=== PATIENT | male | born 1955 | race Caucasian/White ===

== ENCOUNTER 2019-02-22 06:22 | Day surgery (SDC) | payer BC ==
[2019-02-22] VITALS (7 sets, daily range): BP systolic 115–152; BP diastolic 63–93
[~2019-02-22] VITALS: Ht 175.3 cm; Wt 79.7 kg
[2019-02-22] MEDS ORDERED: normal saline 1000ml 1,000 ML IV PRN (06:45)
[2019-02-22] MEDS ORDERED: ESCI20TA38 PO (06:48)
[2019-02-22] MEDS ORDERED: DOCU-28 PO (06:50)
[2019-02-22] MEDS ORDERED: GABA-532 PO (06:51)
[2019-02-22] MEDS ORDERED: IBUP1TAB PO (06:57)
[2019-02-22] MEDS ORDERED: HYDR-3965 PO (06:58)
[2019-02-22 07:26] LABS: BASOPHILS # (AUTO) 0.1 X10'3 (0-0.2); BASOPHILS % (AUTO) 0.9 % (0-1); EOSINOPHILS # (AUTO) 0.2 X10'3 (0-0.9); EOSINOPHILS % (AUTO) 3.3 % (0-6); HEMATOCRIT 44.6 % (42.0-52.0); HEMOGLOBIN 15.1 g/dl (14.0-17.9); LYMPHOCYTES % (AUTO) 14.7 % (21-51); MEAN CORPUSCULAR HEMOGLOBIN 27.3 PG (27.0-31.0); MEAN CORPUSCULAR VOLUME 80.3 FL (78-98); MONOCYTES # (AUTO) 0.6 X10'3 (0-0.9); MONOCYTES % (AUTO) 8.7 % (2-12); NEUTROPHILS # (AUTO) 4.7 X10'3 (1.8-7.7); NEUTROPHILS % (AUTO) 72.4 % (42-75); PLATELET COUNT 188 X10'3 (140-440); RED BLOOD COUNT 5.56 X10'6 (4.70-6.10); RED CELL DISTRIBUTION WIDTH 14.2 % (11.5-14.5); WHITE BLOOD COUNT 6.5 X10'3 (4.5-11.0)
[2019-02-22 07:38] LABS: ALBUMIN 4.2 G/DL (3.4-5.0); ANION GAP 8 (8-16); BLOOD UREA NITROGEN 15 MG/DL (7-18); BUN/CREATININE RATIO 15.8 (5.4-32.0); CALCIUM 8.5 MG/DL (8.5-10.1); CHLORIDE 103 MMOL/L (99-107); CREATININE 0.95 MG/DL (0.60-1.10); GLUCOSE 106 MG/DL (70-104); POTASSIUM 3.7 MMOL/L (3.5-5.1); SODIUM 139 MMOL/L (135-145); TOTAL CARBON DIOXIDE 28.2 MMOL/L (24-32); eGFR 80 ML/MIN
[2019-02-22] MEDS ORDERED: heparin sodium, porcine/PF 100unit/ml 5ML syringe ICATH ONE (08:15)
[2019-02-22] MEDS ORDERED: fentaNYL/PF 50MCG/1 ML 2ML syringe IV PRN (08:15)
[2019-02-22] MEDS ORDERED: midazolam 2 mg/2 ml injection IV PRN (08:15)
[2019-02-22] MEDS ORDERED: LIDOcaine 1%/PF 5ML 10 MG/ML VIAL SQ ONE (08:15)
[2019-02-22] MEDS ORDERED: heparin sodium, porcine/PF 100unit/ml 5ML syringe ONE (08:17)
[2019-02-22] MEDS ORDERED: midazolam 2 mg/2 ml injection ONE ×2 (08:17→09:03)
[2019-02-22] MEDS ORDERED: fentaNYL/PF 50MCG/1 ML 2ML syringe ONE ×2 (08:17→09:03)
[2019-02-22] MEDS ORDERED: LIDOcaine 1%/PF 5ML 10 MG/ML VIAL ONE (08:17)
[2019-02-22] MEDS ORDERED: acetaminophen 325mg tablet PO PRN (11:05)
== END 2019-02-22 11:00 | disposition home or self-care (01) ==
LOC: SSTAY O 06:22
PROVIDERS: ATTEND Radiology Vascular & Interventional Radiology
DX: C25.9 Malignant neoplasm of pancreas, unspecified (principal); Z90.49 Acquired absence of other specified parts of digestive tract; Z98.890 Other specified postprocedural states; Z98.52 Vasectomy status
CPT/HCPCS: 36415; 36561; 76937; 77001; 80048; 85025; 85610; 99152; 99153; C1788; C1894; J1642; J2001; J2250; J3010; J7030; A6219

== ENCOUNTER 2020-04-16 10:31 | Inpatient (IN) | payer BC ==
[~2020-04-16] VITALS: Ht 175.3 cm; Wt 76.2 kg
[~2020-04-16 10:31] MED LIST: DOCU-28 PO; ESCI20TA45 PO; GABA-532 PO; HYDR-3965 PO; IBUP1TAB PO
[2020-04-16 11:19] LABS: BASOPHILS % (AUTO) 0.6 % (0-1); EOSINOPHILS # (AUTO) 0.1 X10'3 (0-0.9); HEMOGLOBIN 14.4 g/dl (14.0-17.9); LYMPHOCYTES # (AUTO) 0.5 X10'3 (1.1-4.8); LYMPHOCYTES % (AUTO) 8.3 % (21-51); MEAN CORPUSCULAR HEMOGLOBIN 26.8 PG (27.0-31.0); MEAN CORPUSCULAR HGB CONC 33.5 g/dL (33.0-36.5); MEAN CORPUSCULAR VOLUME 79.9 FL (78-98); MEAN PLATELET VOLUME 7.6 FL (7.4-10.4); MONOCYTES # (AUTO) 0.8 X10'3 (0-0.9); NEUTROPHILS # (AUTO) 4.8 X10'3 (1.8-7.7); NEUTROPHILS % (AUTO) 76.1 % (42-75); PLATELET COUNT 208 X10'3 (140-440); RED BLOOD COUNT 5.38 X10'6 (4.70-6.10); RED CELL DISTRIBUTION WIDTH 14.3 % (11.5-14.5); WHITE BLOOD COUNT 6.3 X10'3 (4.5-11.0)
[2020-04-16 11:40] LABS: ALANINE AMINOTRANSFERASE 42 U/L (12-78); ALBUMIN 3.9 G/DL (3.4-5.0); ALBUMIN/GLOBULIN RATIO 0.9 (1.1-1.5); ALKALINE PHOSPHATASE 135 IU/L (46-116); ANION GAP 14 (8-16); ASPARTATE AMINO TRANSFERASE 28 U/L (10-37); BILIRUBIN,TOTAL 0.7 MG/DL (0.1-1.0); BLOOD UREA NITROGEN 23 MG/DL (7-18); BUN/CREATININE RATIO 23.2 (5.4-32.0); CALCIUM 8.9 MG/DL (8.5-10.1); CHLORIDE 103 MMOL/L (99-107); CREATININE 0.99 MG/DL (0.60-1.10); GLUCOSE 120 MG/DL (70-104); POTASSIUM 4.1 MMOL/L (3.5-5.1); SODIUM 138 MMOL/L (135-145); TOTAL CARBON DIOXIDE 20.7 MMOL/L (24-32); TOTAL PROTEIN 8.1 G/DL (6.4-8.2); eGFR 76 ML/MIN
[2020-04-16] MEDS ORDERED: ondansetron/PF 4mg/2ml inj IV ONE (11:50)
[2020-04-16] MEDS ORDERED: morphine 4 MG/ML inj SYRINge IV ONE (11:50)
[2020-04-16] MEDS ORDERED: iohexol 300mg/ml 100ml inj. ONE (12:12)
[2020-04-16] MEDS ORDERED: cefoxitin sod inj 2,000 MG in normal saline 100ml IV soln 100 ML IV ONE (12:40)
[2020-04-16] MEDS ORDERED: magnesium Cl slow-release 64mg tablet PO PRN (13:15)
[2020-04-16] MEDS ORDERED: bisacodyl 10mg suppository rectal RC PRN (13:15)
[2020-04-16] MEDS ORDERED: magnesium 2GM in 50ml NS 50 ML IV PRN (13:15)
[2020-04-16] MEDS ORDERED: acetaminophen 650mg rectal suppository RC PRN (13:15)
[2020-04-16] MEDS ORDERED: magnesium 4gm in 100ml NS 100 ML IV PRN (13:15)
[2020-04-16] MEDS ORDERED: HYDROmorphone inj. 0.5 MG/0.5 ML DISP.SYRIN IV PRN (13:15)
[2020-04-16] MEDS ORDERED: potassium Cl 20 mEq SR tablet PO PRN ×2 (13:15)
[2020-04-16] MEDS ORDERED: potassium CL 10mEq/100ml bag 100 ML IV PRN ×2 (13:15)
[2020-04-16] MEDS ORDERED: ondansetron/PF 4mg/2ml inj IV PRN (13:15)
[2020-04-16] MEDS: normal saline 1000ml 1,000 ML IV SCH ×2 (13:43→15:54)
--- NOTE | 2020-04-16 14:25 | NUR ---
MD Mares at bedside with pt
[2020-04-16 15:16] LABS: CLARITY,URINE CLEAR (Clear); COLOR,URINE YELLOW (Yellow); GLUCOSE, URINE NEGATIVE (Neg); KETONES,URINE TRACE mg/dl (Neg); LEUKOCYTE ESTERASE ,URINE NEGATIVE (Neg); NITRITES, URINE NEGATIVE (Neg); OCCULT BLOOD,URINE NEGATIVE (Neg); PH,URINE 5.5 (4.8-8.0); PROTEIN,URINE NEGATIVE (Neg); UROBILINOGEN,URINE 0.2 E.U/dL (0.2-1.0)
[2020-04-16 15:30] LABS: UA COLLECTION TYPE CLN CATCH MIDSTREAM
--- NOTE | 2020-04-16 15:40 | NUR ---
Received report from SONG Starr. Patient arrived to floor. VSS.
[2020-04-16 15:45] VITALS: BP 117/47
[2020-04-16] MEDS: piperacillin/tazo 4.5gm/100ml 100 ML IV SCH (16:16)
[2020-04-16] MEDS: HYDROmorphone 1 mg/ml syringe IV PRN (17:58)
--- NOTE | 2020-04-16 18:31 | NUR ---
Problems reprioritized. Patient report given, questions answered & plan of care reviewed with SONG COTA.
[2020-04-16 20:00] VITALS: BP 118/61
[2020-04-16] MEDS: K and/or MAG REPLACEMENT MC SCH (20:00)
--- NOTE | 2020-04-16 20:00 | NUR ---
Dr. Torres in to see patient. MD wants a repeat CT with PO contrast over night before deciding on surgery. Hold Tomorrow morning's does of Lovenox per .
[2020-04-16] MEDS: enoxaparin 40mg/0.4ml syringe SQ SCH (20:26)
[2020-04-16] MEDS: diatr meglu/diatrizoate 30ml oral sol.-(3 dose) bottle PO SCH (21:39)
[2020-04-17] VITALS (15 sets, daily range): BP systolic 96–150; BP diastolic 54–79
[2020-04-17] MEDS: piperacillin/tazo 4.5gm/100ml 100 ML IV SCH ×3 (00:23→16:02)
[2020-04-17] MEDS: HYDROmorphone 1 mg/ml syringe IV PRN (00:27)
[2020-04-17] MEDS: normal saline 1000ml 1,000 ML IV SCH ×3 (01:13→20:36)
[2020-04-17 05:09] LABS: BASOPHILS % (AUTO) 0.6 % (0-1); EOSINOPHILS # (AUTO) 0.1 X10'3 (0-0.9); EOSINOPHILS % (AUTO) 2.4 % (0-6); HEMATOCRIT 41.4 % (42.0-52.0); HEMOGLOBIN 13.7 g/dl (14.0-17.9); LYMPHOCYTES # (AUTO) 0.5 X10'3 (1.1-4.8); LYMPHOCYTES % (AUTO) 7.9 % (21-51); MEAN CORPUSCULAR HEMOGLOBIN 26.6 PG (27.0-31.0); MEAN CORPUSCULAR HGB CONC 33.1 g/dL (33.0-36.5); MEAN CORPUSCULAR VOLUME 80.4 FL (78-98); MEAN PLATELET VOLUME 7.8 FL (7.4-10.4); MONOCYTES # (AUTO) 0.7 X10'3 (0-0.9); MONOCYTES % (AUTO) 11.3 % (2-12); NEUTROPHILS # (AUTO) 4.6 X10'3 (1.8-7.7); NEUTROPHILS % (AUTO) 77.8 % (42-75); PLATELET COUNT 165 X10'3 (140-440); RED BLOOD COUNT 5.15 X10'6 (4.70-6.10); RED CELL DISTRIBUTION WIDTH 14.3 % (11.5-14.5)
[2020-04-17 05:41] LABS: ALANINE AMINOTRANSFERASE 34 U/L (12-78); ALBUMIN 3.3 G/DL (3.4-5.0); ALBUMIN/GLOBULIN RATIO 0.9 (1.1-1.5); ALKALINE PHOSPHATASE 115 IU/L (46-116); ANION GAP 8 (8-16); ASPARTATE AMINO TRANSFERASE 23 U/L (10-37); BILIRUBIN,TOTAL 1.1 MG/DL (0.1-1.0); BLOOD UREA NITROGEN 19 MG/DL (7-18); BUN/CREATININE RATIO 16.1 (5.4-32.0); CALCIUM 8.2 MG/DL (8.5-10.1); CHLORIDE 105 MMOL/L (99-107); CREATININE 1.18 MG/DL (0.60-1.10); GLUCOSE 96 MG/DL (70-104); MAGNESIUM 2.2 MG/DL (1.5-2.4); POTASSIUM 3.8 MMOL/L (3.5-5.1); SODIUM 139 MMOL/L (135-145); TOTAL CARBON DIOXIDE 26.4 MMOL/L (24-32); TOTAL PROTEIN 6.9 G/DL (6.4-8.2); eGFR 62 ML/MIN
--- NOTE | 2020-04-17 06:46 | NUR ---
Patient in room [facility] 347B. I have received report from SONG COTA and had the opportunity to ask questions and assume patient care.
[2020-04-17] MEDS: diatr meglu/diatrizoate 30ml oral sol.-(3 dose) bottle PO SCH ×2 (07:27→10:33)
[2020-04-17] MEDS: K and/or MAG REPLACEMENT MC SCH ×2 (07:34→20:00)
[2020-04-17] MEDS ORDERED: ondansetron/PF 4mg/2ml inj IV PRN (15:20)
[2020-04-17] MEDS ORDERED: meperidine/PF 25mg/ml syringe IV PRN ×2 (15:20)
[2020-04-17] MEDS ORDERED: proCHLORperazine 10 MG/2 ml inj IV PRN (15:20)
[2020-04-17] MEDS ORDERED: morphine 2 MG/ML inj. syringe IV PRN (15:20)
[2020-04-17] MEDS ORDERED: ringers solution, lacted 1,000 ML IV SCH (15:20)
[2020-04-17] MEDS ORDERED: rocuronium 10mg/ml inj IV ONE ×2 (16:18→17:43)
[2020-04-17] MEDS ORDERED: midazolam 2 mg/2 ml injection ONE (16:18)
[2020-04-17] MEDS ORDERED: fentaNYL /PF 50mcg/ml 5ml ampule ONE (16:18)
[2020-04-17] MEDS ORDERED: gentamicin 40 MG/1 ML inj ONE (16:30)
[2020-04-17] MEDS ORDERED: clindamycin phosphate 150mg/ml inj. ONE (16:31)
[2020-04-17] MEDS ORDERED: BUPIVAcaine/PF 2.5 mg/ml (0.25%) 30ml vial ONE ×2 (16:31→17:59)
[2020-04-17] MEDS ORDERED: sevoflurane 250ml liquid IH ONE (16:50)
[2020-04-17] MEDS ORDERED: dexamethasone sod phosphate 10mg/ml inj ONE (16:50)
[2020-04-17] MEDS ORDERED: LIDOcaine 1%/PF 5ML 10 MG/ML VIAL ONE (16:50)
[2020-04-17] MEDS ORDERED: neostigmine methylsulfate 1 MG/ML 10ml vial ONE (16:50)
[2020-04-17] MEDS ORDERED: ondansetron/PF 4mg/2ml inj ONE (17:29)
[2020-04-17] MEDS ORDERED: propofol inj 20 ML IV ONE (17:29)
[2020-04-17] MEDS ORDERED: BUPIVACAINE liposomal/PF 13.3 MG/ML vial IM ONE (18:00)
--- NOTE | 2020-04-17 18:09 | NUR ---
Patient in room [facility] 347. I have received report from viraj Vergara and had the opportunity to ask questions and assume patient care. Patient is currently in surgery,left unit at 1606.
--- NOTE | 2020-04-17 18:51 | NUR ---
Problems reprioritized. Patient report given, questions answered & plan of care reviewed with SONG MOODY.
[2020-04-17] MEDS ORDERED: glycopyrrolate 0.2mg/ml inj ONE (19:12)
--- NOTE | 2020-04-17 19:21 | NUR ---
Received from OR via , accompanied by Anesthesiologist DR MONTES and report given by Anesthesiolgist. AWAKE AND C/O SEVERE ABD INCISION PAIN. WILL MEDICATE. VITALS STABLE. DRESSING DI. JIMMY WITH SERO GEREMIAS IN BUIB. BARRIENTOS WITH CLEAR URINE.
[2020-04-17] MEDS ORDERED: acetaminophen 1,000mg/100ml IV 100 ML IV ONE (19:25)
[2020-04-17] MEDS: meperidine/PF 25mg/ml syringe IV PRN ×2 (19:27→19:30)
[2020-04-17] MEDS: morphine 4 MG/ML inj SYRINge IV PRN ×2 (19:41→19:50)
[2020-04-17] MEDS ORDERED: CADD PCA waste documentation MC SCH (19:45)
[2020-04-17] MEDS: HYDROmorphone/NS 1 mg/ml CADD 50 ML IV SCH ×3 (19:56→23:00)
--- NOTE | 2020-04-17 20:05 | NUR ---
Received report from corin Pina, RN. Awaiting patient ot arrive to unit.
--- NOTE | 2020-04-17 20:11 | NUR ---
Report called to receiving nurse. Transferred via BED Belongings . Special Issues communicated to receiving nurse. AWAKE AND ORIENTED. VITALS STABLE. DRESSING DI. STATES PAIN IMPROVING. TO SURGICAL RM 347B AT THIS TIME.
--- NOTE | 2020-04-17 20:31 | NUR ---
2014.Patient arrived to unit in bed RN transported. Patietn is ALOx4, patient is painful, encouraged him to press his CADD pump when it was time. Two big abdominal dressing covering the abdominal area, it is CDI, galarza is in place and draining urine, SCDS are on and working. I will continue to monitor.
[2020-04-18] VITALS: BP 116/72
[2020-04-18] MEDS: piperacillin/tazo 4.5gm/100ml 100 ML IV SCH ×3 (00:08→15:59)
[2020-04-18 00:44] VITALS: BP 136/70
[2020-04-18] MEDS: HYDROmorphone/NS 1 mg/ml CADD 50 ML IV SCH ×11 (01:00→23:00)
[2020-04-18 04:00] VITALS: BP 118/68
[2020-04-18 05:42] LABS: ALANINE AMINOTRANSFERASE 31 U/L (12-78); ALBUMIN 3.2 G/DL (3.4-5.0); ALBUMIN/GLOBULIN RATIO 0.9 (1.1-1.5); ANION GAP 12 (8-16); ASPARTATE AMINO TRANSFERASE 26 U/L (10-37); BILIRUBIN,TOTAL 0.9 MG/DL (0.1-1.0); BLOOD UREA NITROGEN 13 MG/DL (7-18); BUN/CREATININE RATIO 10.7 (5.4-32.0); CALCIUM 7.9 MG/DL (8.5-10.1); CHLORIDE 104 MMOL/L (99-107); CREATININE 1.22 MG/DL (0.60-1.10); GLUCOSE 137 MG/DL (70-104); MAGNESIUM 1.9 MG/DL (1.5-2.4); POTASSIUM 4.1 MMOL/L (3.5-5.1); SODIUM 138 MMOL/L (135-145); TOTAL CARBON DIOXIDE 21.7 MMOL/L (24-32); TOTAL PROTEIN 6.8 G/DL (6.4-8.2); eGFR 60 ML/MIN
[2020-04-18 05:43] LABS: ALKALINE PHOSPHATASE 105 IU/L (46-116)
--- NOTE | 2020-04-18 06:28 | NUR ---
Problems reprioritized. Patient report given, questions answered & plan of care reviewed with SONG Vaca.
--- NOTE | 2020-04-18 06:39 | NUR ---
Patient in room [facility] 347. I have received report from SONG Olmos and had the opportunity to ask questions and assume patient care.
[2020-04-18 07:00] VITALS: BP 122/66
[2020-04-18] MEDS: K and/or MAG REPLACEMENT MC SCH ×2 (08:00→20:00)
[2020-04-18 08:17] LABS: BASOPHILS % (AUTO) 0 % (0-1); EOSINOPHILS % (AUTO) 0 % (0-6); HEMATOCRIT 36.3 % (42.0-52.0); HEMOGLOBIN 12.4 g/dl (14.0-17.9); LYMPHOCYTES # (AUTO) 0.2 X10'3 (1.1-4.8); LYMPHOCYTES % (AUTO) 2.3 % (21-51); MEAN CORPUSCULAR HEMOGLOBIN 27.2 PG (27.0-31.0); MEAN CORPUSCULAR VOLUME 79.9 FL (78-98); MONOCYTES # (AUTO) 0.7 X10'3 (0-0.9); MONOCYTES % (AUTO) 8.3 % (2-12); NEUTROPHILS # (AUTO) 7.3 X10'3 (1.8-7.7); NEUTROPHILS % (AUTO) 89.4 % (42-75); PLATELET COUNT 125 X10'3 (140-440); RED BLOOD COUNT 4.55 X10'6 (4.70-6.10); RED CELL DISTRIBUTION WIDTH 13.9 % (11.5-14.5); WHITE BLOOD COUNT 8.2 X10'3 (4.5-11.0)
[2020-04-18] MEDS: enoxaparin 40mg/0.4ml syringe SQ SCH (09:04)
--- NOTE | 2020-04-18 09:18 | NUR ---
Patient galarza cath removed per MD order. Patient tolerated well. Patient educated about voiding, bladder scanning, and ambulation. Patient stated an understanding of this. Will monitor urine output.
[2020-04-18] MEDS: normal saline 1000ml 1,000 ML IV SCH ×2 (10:50→20:28)
[2020-04-18 11:00] VITALS: BP 123/64
--- NOTE | 2020-04-18 17:00 | NUR ---
Bladder scan shows 302cc's volume in bladder. Dr Lou notified, orders received to straight cath if volume is greater than 400cc Q6H PRN. Will continue to monitor.
[2020-04-18 18:00] VITALS: BP 116/61
--- NOTE | 2020-04-18 18:31 | NUR ---
Problems reprioritized. Patient report given, questions answered & plan of care reviewed with SONG Olmos.
--- NOTE | 2020-04-18 18:46 | NUR ---
Patient in room [facility] 347. I have received report from SONG Vaca and had the opportunity to ask questions and assume patient care.
[2020-04-18] MEDS: lactobacillus rhamnosus 10,000 MMU CELLS/CAPSULE PO SCH (19:12)
[2020-04-19] VITALS: BP 118/70
[2020-04-19] MEDS: piperacillin/tazo 4.5gm/100ml 100 ML IV SCH ×3 (00:20→16:28)
[2020-04-19] MEDS: HYDROmorphone/NS 1 mg/ml CADD 50 ML IV SCH ×12 (01:00→23:00)
[2020-04-19] MEDS: normal saline 1000ml 1,000 ML IV SCH ×2 (05:25→16:28)
--- NOTE | 2020-04-19 06:14 | NUR ---
Problems reprioritized. Patient report given, questions answered & plan of care reviewed with SONG Garcia.
[2020-04-19 06:49] LABS: BASOPHILS % (AUTO) 0.2 % (0-1); EOSINOPHILS # (AUTO) 0.1 X10'3 (0-0.9); HEMATOCRIT 33.2 % (42.0-52.0); HEMOGLOBIN 11.2 g/dl (14.0-17.9); LYMPHOCYTES # (AUTO) 0.3 X10'3 (1.1-4.8); LYMPHOCYTES % (AUTO) 4.3 % (21-51); MEAN CORPUSCULAR HEMOGLOBIN 26.9 PG (27.0-31.0); MEAN CORPUSCULAR HGB CONC 33.8 g/dL (33.0-36.5); MEAN CORPUSCULAR VOLUME 79.7 FL (78-98); MEAN PLATELET VOLUME 8.1 FL (7.4-10.4); MONOCYTES # (AUTO) 0.8 X10'3 (0-0.9); MONOCYTES % (AUTO) 11.7 % (2-12); NEUTROPHILS # (AUTO) 5.5 X10'3 (1.8-7.7); NEUTROPHILS % (AUTO) 82.8 % (42-75); PLATELET COUNT 128 X10'3 (140-440); RED BLOOD COUNT 4.16 X10'6 (4.70-6.10); RED CELL DISTRIBUTION WIDTH 14.2 % (11.5-14.5); WHITE BLOOD COUNT 6.6 X10'3 (4.5-11.0)
[2020-04-19 07:01] LABS: ALANINE AMINOTRANSFERASE 27 U/L (12-78); ALBUMIN 2.9 G/DL (3.4-5.0); ALBUMIN/GLOBULIN RATIO 0.9 (1.1-1.5); ALKALINE PHOSPHATASE 83 IU/L (46-116); ANION GAP 8 (8-16); ASPARTATE AMINO TRANSFERASE 32 U/L (10-37); BILIRUBIN,TOTAL 0.9 MG/DL (0.1-1.0); BLOOD UREA NITROGEN 11 MG/DL (7-18); BUN/CREATININE RATIO 10.9 (5.4-32.0); CALCIUM 7.8 MG/DL (8.5-10.1); CHLORIDE 105 MMOL/L (99-107); CREATININE 1.01 MG/DL (0.60-1.10); GLUCOSE 106 MG/DL (70-104); MAGNESIUM 1.9 MG/DL (1.5-2.4); POTASSIUM 3.5 MMOL/L (3.5-5.1); SODIUM 139 MMOL/L (135-145); TOTAL CARBON DIOXIDE 26.1 MMOL/L (24-32); TOTAL PROTEIN 6.2 G/DL (6.4-8.2); eGFR 74 ML/MIN
[2020-04-19 07:25] VITALS: BP 102/60
[2020-04-19] MEDS: K and/or MAG REPLACEMENT MC SCH ×2 (08:00→19:34)
[2020-04-19] MEDS: enoxaparin 40mg/0.4ml syringe SQ SCH (08:45)
[2020-04-19] MEDS: lactobacillus rhamnosus 10,000 MMU CELLS/CAPSULE PO SCH ×2 (08:45→19:29)
[2020-04-19 11:36] VITALS: BP 121/64
[2020-04-19 18:00] VITALS: BP 123/71
--- NOTE | 2020-04-19 18:29 | NUR ---
Problems reprioritized. Patient report given, questions answered & plan of care reviewed with SONG Oconnor.
--- NOTE | 2020-04-19 18:30 | NUR ---
Patient in room [facility] 347. I have received report from SONG Malone and had the opportunity to ask questions and assume patient care. Patient sitting comfortably on side of bed, no complaints, he is A&O x4 and CACERES.
[2020-04-19 23:29] VITALS: BP 101/57
[2020-04-20] MEDS: piperacillin/tazo 4.5gm/100ml 100 ML IV SCH ×3 (00:40→16:35)
[2020-04-20] MEDS: normal saline 1000ml 1,000 ML IV SCH ×3 (00:44→16:51)
[2020-04-20] MEDS: HYDROmorphone/NS 1 mg/ml CADD 50 ML IV SCH ×12 (01:00→23:00)
[2020-04-20 05:42] LABS: BASOPHILS % (AUTO) 0.4 % (0-1); EOSINOPHILS # (AUTO) 0.1 X10'3 (0-0.9); EOSINOPHILS % (AUTO) 2.2 % (0-6); HEMATOCRIT 32.6 % (42.0-52.0); HEMOGLOBIN 10.9 g/dl (14.0-17.9); LYMPHOCYTES # (AUTO) 0.3 X10'3 (1.1-4.8); LYMPHOCYTES % (AUTO) 5.5 % (21-51); MEAN CORPUSCULAR HEMOGLOBIN 26.8 PG (27.0-31.0); MEAN CORPUSCULAR HGB CONC 33.5 g/dL (33.0-36.5); MEAN PLATELET VOLUME 8.3 FL (7.4-10.4); MONOCYTES # (AUTO) 0.7 X10'3 (0-0.9); MONOCYTES % (AUTO) 14.4 % (2-12); NEUTROPHILS # (AUTO) 3.7 X10'3 (1.8-7.7); NEUTROPHILS % (AUTO) 77.5 % (42-75); PLATELET COUNT 94 X10'3 (140-440); RED BLOOD COUNT 4.07 X10'6 (4.70-6.10); RED CELL DISTRIBUTION WIDTH 14.3 % (11.5-14.5); WHITE BLOOD COUNT 4.7 X10'3 (4.5-11.0)
[2020-04-20 05:43] LABS: ALANINE AMINOTRANSFERASE 25 U/L (12-78); ALBUMIN 2.7 G/DL (3.4-5.0); ALBUMIN/GLOBULIN RATIO 0.9 (1.1-1.5); ALKALINE PHOSPHATASE 76 IU/L (46-116); ANION GAP 10 (8-16); ASPARTATE AMINO TRANSFERASE 26 U/L (10-37); BILIRUBIN,TOTAL 0.9 MG/DL (0.1-1.0); BLOOD UREA NITROGEN 7 MG/DL (7-18); BUN/CREATININE RATIO 8.6 (5.4-32.0); CALCIUM 7.9 MG/DL (8.5-10.1); CHLORIDE 106 MMOL/L (99-107); CREATININE 0.81 MG/DL (0.60-1.10); GLUCOSE 99 MG/DL (70-104); MAGNESIUM 1.9 MG/DL (1.5-2.4); POTASSIUM 3.1 MMOL/L (3.5-5.1); SODIUM 140 MMOL/L (135-145); TOTAL CARBON DIOXIDE 23.6 MMOL/L (24-32); TOTAL PROTEIN 5.8 G/DL (6.4-8.2); eGFR > 90 ML/MIN
--- NOTE | 2020-04-20 06:39 | NUR ---
Problems reprioritized. Patient report given, questions answered & plan of care reviewed with SONG Lambert.
--- NOTE | 2020-04-20 06:40 | NUR ---
Patient in room [facility] 347. I have received report from SONG Palm and had the opportunity to ask questions and assume patient care.
--- NOTE | 2020-04-20 07:04 | NUR ---
PCT informed primary nurse that patients heart rate is jumping all over the place from 130s-60s. Patient reports feeling fine. RN listened to heart sounds and rhythm was irregular. This is new for patient. Patient denies any dysrhythmias in the past and history is negative for afib. paged with following: PAGER ID: [phone] MESSAGE: SONG Lambert [phone] B Aung Samson VS taken, heart rate irregular, jumping from 132 to 60 and back to 120 BPM, no afib hx, BP 115/70 manual, K 3.1, Okay to get EKG and replace per protocol? Thank you
[2020-04-20 07:14] VITALS: BP_SYST 115; BP_SYST 123; BP_DIAS 100; BP_DIAS 70
[2020-04-20] MEDS: enoxaparin 40mg/0.4ml syringe SQ SCH (07:30)
[2020-04-20] MEDS: lactobacillus rhamnosus 10,000 MMU CELLS/CAPSULE PO SCH ×2 (07:30→19:43)
[2020-04-20] MEDS ORDERED: diltiazem 5mg/ml 5ml inj. IV ONE ×2 (07:45→08:00)
--- NOTE | 2020-04-20 07:58 | NUR ---
EKG shows possible afib, charge account authorizer spoke with Dr. Lou and was given orders to transfer patient to PCU. Unit to unit transfer intervention completed, belongings packed and ready, patient informed of situation and is aware of transfer.
[2020-04-20] MEDS: K and/or MAG REPLACEMENT MC SCH ×2 (08:00→19:44)
[2020-04-20] MEDS ORDERED: diltiazem-NS 100mg/100ml 100 ML IV SCH (08:30)
--- NOTE | 2020-04-20 08:55 | NUR ---
Report called to SONG Rodriguez. Patient will be going into room 3008.
--- NOTE | 2020-04-20 08:55 | NUR ---
Patient in room [facility] 347. I have received report from SONG Lambert and had the opportunity to ask questions, awaiting pt's arrival.
--- NOTE | 2020-04-20 09:19 | NUR ---
Pt arrived from surgical floor, pt stayed on bed. Alert and oriented to room, call light within reach. First set of vitals complete. BP 122/86 HR 151 R 24 0296 RA Pain 3/10. NS running at 100ml/hr, CADD assessed. Will continue to monitor pt.
[2020-04-20 09:33] LABS: TOTAL CELLS COUNTED 100; TOXIC GRANULATION 2+
[2020-04-20 09:34] LABS: PLATELET ESTIMATE DECREASED
--- NOTE | 2020-04-20 10:44 | NUR ---
Paged Dr Lou PAGER ID: [phone] MESSAGE: Re: Aung Samson [id number] Gave pt Cardizem push IV, BP dropped to 87/74 manually. Still in AFib, supervisor telephone clerks said he's having pauses trying to convert to sinus but doesn't stick. Please advise. Thanks Jennifer [phone]
[2020-04-20 11:00] VITALS: BP 90/62
--- NOTE | 2020-04-20 11:00 | NUR ---
For 1100 CADD reassessment, noticed pump had intermittently cleared. I will continue to reassess Q2H and document appropriately.
[2020-04-20] MEDS ORDERED: normal saline 1000ml 1,000 ML IV ONE (11:20)
--- NOTE | 2020-04-20 11:21 | NUR ---
Per Dr Lou's orders, give pt 1 liter bolus of normal saline, then recheck blood pressure, if systolic is over 100 start Cardizem gtt.
[2020-04-20 11:30] VITALS: BP 86/74
[2020-04-20] MEDS ORDERED: magnesium 4gm in 100ml NS 100 ML IV PRN (11:40)
[2020-04-20] MEDS ORDERED: potassium Cl 20 mEq SR tablet PO PRN (11:40)
[2020-04-20] MEDS ORDERED: potassium CL 10mEq/100ml bag 100 ML IV PRN (11:40)
[2020-04-20] MEDS ORDERED: magnesium Cl slow-release 64mg tablet PO PRN (11:40)
[2020-04-20] MEDS: potassium Cl 20 mEq SR tablet PO PRN ×3 (11:51→19:43)
--- NOTE | 2020-04-20 13:26 | NUR ---
Paged Dr Lou PAGER ID: [phone] MESSAGE: Aung Briggs [phone] Pt never started on Cardizem gtt because I was giving him a NS bolus for BP, pt converted to Sinus rhythm with rate in 70's. Do you still want me to start the Cardizem gtt?Please advise. Thank you :) Jennifer Pérez [phone]
[2020-04-20] MEDS ORDERED: pantoprazole 40 MG vial IV ONE (14:05)
[2020-04-20 15:00] VITALS: BP 115/66
[2020-04-20] MEDS: metoprolol succinate 25mg (24-HOUR) SR. Tablet PO SCH (15:28)
[2020-04-20 18:00] VITALS: BP 120/74
--- NOTE | 2020-04-20 18:22 | NUR ---
Problems reprioritized. Patient report given, questions answered & plan of care reviewed with SONG Quiros. Informed RN, pt needs one more dose of K-Dur to complete protocol replacement. All pt needs met at this time.
--- NOTE | 2020-04-20 18:38 | NUR ---
Patient in room PCU 3008. I have received report from SONG Rodriguez and had the opportunity to ask questions and assume patient care.
[2020-04-20] MEDS: magnesium hydroxide 30ml (MOM) UD suspension PO SCH (19:43)
[2020-04-20 21:42] VITALS: BP 125/70
--- NOTE | 2020-04-20 21:42 | NUR ---
PATIENT STATES HAD 3 SMALL UNFORMED BOWEL MOVEMENTS THAT WERE BLACK.
[2020-04-21] MEDS: piperacillin/tazo 4.5gm/100ml 100 ML IV SCH ×3 (00:15→15:30)
[2020-04-21] MEDS: HYDROmorphone/NS 1 mg/ml CADD 50 ML IV SCH ×9 (01:00→17:00)
[2020-04-21 02:28] VITALS: BP 106/63
--- NOTE | 2020-04-21 06:00 | NUR ---
Patient in room PCU 3008. I have received report from Chula ZULETA and had the opportunity to ask questions and assume patient care.
[2020-04-21 06:16] LABS: BASOPHILS % (AUTO) 0.6 % (0-1); EOSINOPHILS # (AUTO) 0.1 X10'3 (0-0.9); EOSINOPHILS % (AUTO) 2.9 % (0-6); HEMATOCRIT 31.9 % (42.0-52.0); HEMOGLOBIN 10.7 g/dl (14.0-17.9); LYMPHOCYTES # (AUTO) 0.3 X10'3 (1.1-4.8); LYMPHOCYTES % (AUTO) 6.2 % (21-51); MEAN CORPUSCULAR HEMOGLOBIN 26.8 PG (27.0-31.0); MEAN CORPUSCULAR HGB CONC 33.6 g/dL (33.0-36.5); MEAN CORPUSCULAR VOLUME 79.8 FL (78-98); MEAN PLATELET VOLUME 8.2 FL (7.4-10.4); MONOCYTES # (AUTO) 0.6 X10'3 (0-0.9); MONOCYTES % (AUTO) 13.6 % (2-12); NEUTROPHILS # (AUTO) 3.1 X10'3 (1.8-7.7); NEUTROPHILS % (AUTO) 76.7 % (42-75); PLATELET COUNT 127 X10'3 (140-440); RED CELL DISTRIBUTION WIDTH 14.2 % (11.5-14.5); WHITE BLOOD COUNT 4.1 X10'3 (4.5-11.0)
[2020-04-21 06:19] LABS: ALANINE AMINOTRANSFERASE 33 U/L (12-78); ALBUMIN 2.7 G/DL (3.4-5.0); ALBUMIN/GLOBULIN RATIO 0.9 (1.1-1.5); ALKALINE PHOSPHATASE 80 IU/L (46-116); ANION GAP 6 (8-16); ASPARTATE AMINO TRANSFERASE 30 U/L (10-37); BILIRUBIN,TOTAL 0.8 MG/DL (0.1-1.0); BLOOD UREA NITROGEN 4 MG/DL (7-18); BUN/CREATININE RATIO 4.3 (5.4-32.0); CALCIUM 7.4 MG/DL (8.5-10.1); CHLORIDE 108 MMOL/L (99-107); CREATININE 0.94 MG/DL (0.60-1.10); GLUCOSE 94 MG/DL (70-104); POTASSIUM 3.3 MMOL/L (3.5-5.1); SODIUM 142 MMOL/L (135-145); TOTAL PROTEIN 5.8 G/DL (6.4-8.2); eGFR 81 ML/MIN
--- NOTE | 2020-04-21 06:27 | NUR ---
Problems reprioritized. Patient report given, questions answered & plan of care reviewed with SONG Kat.
[2020-04-21] MEDS: metoprolol succinate 25mg (24-HOUR) SR. Tablet PO SCH (07:11)
[2020-04-21] MEDS: lactobacillus rhamnosus 10,000 MMU CELLS/CAPSULE PO SCH ×2 (07:11→19:50)
[2020-04-21] MEDS: enoxaparin 40mg/0.4ml syringe SQ SCH (07:12)
[2020-04-21] MEDS: pantoprazole 40 MG vial IV SCH (07:13)
[2020-04-21] MEDS: K and/or MAG REPLACEMENT MC SCH ×2 (07:13→19:52)
[2020-04-21] MEDS: magnesium hydroxide 30ml (MOM) UD suspension PO SCH ×2 (07:13→19:50)
[2020-04-21] MEDS: potassium Cl 20 mEq SR tablet PO PRN ×3 (07:21→15:30)
[2020-04-21 07:34] VITALS: BP 149/82
[2020-04-21 11:00] VITALS: BP 115/58
--- NOTE | 2020-04-21 11:21 | NUR ---
Initial: Pt admit with acute appendicitis with hx stage IV metastatic pancreatic cancer. 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 Pt now s/p ileocolic resection. Diet order has been advanced from clear liquids to full liquids and pt continues with 100% PO intake. Recommend Ensure High Protein TID for increased nutrient needs. LBM 04/20, previously without a BM since 04/16. Will continue to follow and monitor need for further nutrition intervention. Recommendations: 1) Advance to low fat diet as medically indicated 2) Ensure High Protein TID, pending MD approval in [facility] 3) Consider pancreatic enzymes given stage IV pancreatic cancer 4) Routine bowel care 5) Scaled weights per rx Addendum: 04/21/20 at [address] Amended: Links added.
[2020-04-21] MEDS: normal saline 1000ml 1,000 ML IV SCH ×2 (13:12→22:17)
--- NOTE | 2020-04-21 14:54 | NUR ---
Called to give report, nurse is with a patient and will call back.
--- NOTE | 2020-04-21 15:28 | NUR ---
Problems reprioritized. Patient report given, questions answered & plan of care reviewed with Sigrid ZULETA.
--- NOTE | 2020-04-21 15:30 | NUR ---
Dr. Lou stated he wanted to order aspirin 325mg if Dr. Torres was okay with it surgically. Page out to Dr. Torres to confirm. Was also going to inform Dr. Torres of JIMMY site leaking around insertion site also. Awaiting call back.
[2020-04-21 16:20] VITALS: BP 156/81
[2020-04-21 18:00] VITALS: BP 127/61
--- NOTE | 2020-04-21 18:04 | NUR ---
Problems reprioritized. Patient report given, questions answered & plan of care reviewed with Almita ZULETA.
--- NOTE | 2020-04-21 18:06 | NUR ---
Patient in room ORTHO 4007. I have received report from Sigrid ZULETA and had the opportunity to ask questions and assume patient care.
--- NOTE | 2020-04-21 19:19 | NUR ---
Spoke with KASIA COYLE'Dejuan JIMMY drain. Patient tolerated procedure well. KASIA'D CADD pump and will start oral pain meds.
[2020-04-21] MEDS: HYDROcodone/acetaminophen 10/325mg tab PO PRN ×2 (19:51→23:56)
[2020-04-21 22:00] VITALS: BP 99/64
[2020-04-21] MEDS: piperacillin/tazo 3.375gm/50ml 50 ML IV SCH (23:51)
[2020-04-22] MEDS: HYDROcodone/acetaminophen 10/325mg tab PO PRN ×2 (04:45→08:54)
[2020-04-22 06:00] VITALS: BP 147/76
--- NOTE | 2020-04-22 06:30 | NUR ---
Patient in room ORTHO 4007. I have received report from Almita ZULETA and had the opportunity to ask questions and assume patient care.
--- NOTE | 2020-04-22 06:33 | NUR ---
Problems reprioritized. Patient report given, questions answered & plan of care reviewed with Khadijah ZULETA.
[2020-04-22 07:13] LABS: MAGNESIUM 2.2 MG/DL (1.5-2.4)
[2020-04-22] MEDS: lactobacillus rhamnosus 10,000 MMU CELLS/CAPSULE PO SCH (07:29)
[2020-04-22] MEDS: enoxaparin 40mg/0.4ml syringe SQ SCH (07:30)
[2020-04-22] MEDS: magnesium hydroxide 30ml (MOM) UD suspension PO SCH (07:31)
[2020-04-22] MEDS: pantoprazole 40 MG vial IV SCH (07:31)
[2020-04-22] MEDS: piperacillin/tazo 3.375gm/50ml 50 ML IV SCH (07:31)
[2020-04-22] MEDS: K and/or MAG REPLACEMENT MC SCH (07:46)
--- NOTE | 2020-04-22 07:47 | NUR ---
Potasium level not drawn today replaced times 4 po yesterday x 4 for 3.3 did not give Addendum: 04/22/20 at 0804 by Khadijah Hanley RN Added on potassium level to Mg drawn this morning and will replace again if needed.
[2020-04-22] MEDS: metoprolol succinate 25mg (24-HOUR) SR. Tablet PO SCH (07:50)
[2020-04-22] MEDS: normal saline 1000ml 1,000 ML IV SCH (07:55)
--- NOTE | 2020-04-22 08:04 | NUR ---
Metoprolol held due to HR only 55.
[2020-04-22] MEDS ORDERED: aspirin 325mg tablet PO SCH (08:30)
[2020-04-22 09:07] LABS: POTASSIUM 3.5 MMOL/L (3.5-5.1)
[2020-04-22 10:00] VITALS: BP 124/68
[2020-04-22] MEDS ORDERED: METO-395 PO (13:00)
[2020-04-22] MEDS ORDERED: IBUP1TAB PO (13:00)
[2020-04-22] MEDS ORDERED: METR-159 PO (13:01)
[2020-04-23] MEDS ORDERED: pantoprazole 40mg Tablet.DR PO SCH (07:30)
== END 2020-04-22 16:40 | disposition home or self-care (01) | DRG 330 ==
LOC: ER 10:31 → SUR 3N 13:12 → PCU 3S 04-20 09:19 → ORTHO 4S 04-21 15:40
PROVIDERS: ADMIT Family Medicine; ATTEND Internal Medicine
PROC: 0DJD4ZZ Inspection of Lower Intestinal Tract, Percutaneous Endoscopic Approach (ICD-10-PCS; 2020-04-17)
PROC: 3E0T3BZ Introduction of Anesthetic Agent into Peripheral Nerves and Plexi, Percutaneous Approach (ICD-10-PCS; 2020-04-17)
PROC: 0DBF0ZZ Excision of Right Large Intestine, Open Approach (ICD-10-PCS; principal; 2020-04-17 16:50)
DX: D49.0 Neoplasm of unspecified behavior of digestive system (principal); C79.9 Secondary malignant neoplasm of unspecified site; C25.9 Malignant neoplasm of pancreas, unspecified; E87.6 Hypokalemia; I48.91 Unspecified atrial fibrillation; D64.9 Anemia, unspecified; Z87.891 Personal history of nicotine dependence; Z85.07 Personal history of malignant neoplasm of pancreas; Z83.3 Family history of diabetes mellitus; Z80.7 Family history of other malignant neoplasms of lymphoid, hematopoietic and related tissues; Z79.899 Other long term (current) drug therapy; Z90.49 Acquired absence of other specified parts of digestive tract
CPT/HCPCS: 99285; Z7506; Z7508; 36415; 74176; 74177; 80053; 81003; 82378; 82948; 83605; 83735; 84132; 85025; 86885; 86900; 86901; 87040; 87081; 93005; A4215; A4340; A4618; A6253; A6407; A6449; A7000; C1758; C9113; C9290; G0378; J0131; J0694; J1100; J1170; J1580; J1650; J2175; J2250; J2270; J2405; J2543; J2704; J2710; J3010; J3490; J7030; J7120; Q9963; Q9967

== ENCOUNTER 2020-06-03 11:30 | Emergency (ER) | payer BC ==
[~2020-06-03] VITALS: Ht 175.3 cm; Wt 72.6 kg
[~2020-06-03 11:30] MED LIST changes: -DOCU-28 PO; -ESCI20TA45 PO; -GABA-532 PO; -HYDR-3965 PO; +METO-395 PO
[2020-06-03 12:27] LABS: BASOPHILS % (AUTO) 0.2 % (0-1); EOSINOPHILS % (AUTO) 0.3 % (0-6); HEMATOCRIT 38.8 % (42.0-52.0); HEMOGLOBIN 12.7 g/dl (14.0-17.9); LYMPHOCYTES # (AUTO) 0.3 X10'3 (1.1-4.8); LYMPHOCYTES % (AUTO) 2.2 % (21-51); MEAN CORPUSCULAR HEMOGLOBIN 25.6 PG (27.0-31.0); MEAN CORPUSCULAR HGB CONC 32.8 g/dL (33.0-36.5); MEAN PLATELET VOLUME 7.7 FL (7.4-10.4); MONOCYTES # (AUTO) 1.1 X10'3 (0-0.9); MONOCYTES % (AUTO) 8.2 % (2-12); NEUTROPHILS # (AUTO) 11.6 X10'3 (1.8-7.7); NEUTROPHILS % (AUTO) 89.1 % (42-75); PLATELET COUNT 179 X10'3 (140-440); RED BLOOD COUNT 4.97 X10'6 (4.70-6.10); WHITE BLOOD COUNT 13.1 X10'3 (4.5-11.0)
[2020-06-03 12:38] LABS: ALANINE AMINOTRANSFERASE 31 U/L (12-78); ALBUMIN 3.7 G/DL (3.4-5.0); ALBUMIN/GLOBULIN RATIO 0.9 (1.1-1.5); ALKALINE PHOSPHATASE 145 IU/L (46-116); ANION GAP 7 (8-16); ASPARTATE AMINO TRANSFERASE 21 U/L (10-37); BILIRUBIN,TOTAL 1.1 MG/DL (0.1-1.0); BLOOD UREA NITROGEN 20 MG/DL (7-18); BUN/CREATININE RATIO 20.2 (5.4-32.0); CALCIUM 8.7 MG/DL (8.5-10.1); CHLORIDE 102 MMOL/L (99-107); CREATININE 0.99 MG/DL (0.60-1.10); GLUCOSE 129 MG/DL (70-104); POTASSIUM 3.7 MMOL/L (3.5-5.1); SODIUM 137 MMOL/L (135-145); TOTAL CARBON DIOXIDE 27.6 MMOL/L (24-32); TOTAL PROTEIN 7.8 G/DL (6.4-8.2); eGFR 76 ML/MIN
[2020-06-03] MEDS ORDERED: iohexol 300mg/ml 100ml inj. ONE (13:26)
[2020-06-03 15:20] VITALS: BP 138/71
== END 2020-06-03 16:41 | disposition home or self-care (01) ==
LOC: ER 11:30
DX: R19.03 Right lower quadrant abdominal swelling, mass and lump (principal); Z98.890 Other specified postprocedural states; Z79.899 Other long term (current) drug therapy
CPT/HCPCS: 36415; 74177; 80053; 85025; 99285; Q9967